=== PATIENT | female | born 1950 | race Caucasian/White ===

== ENCOUNTER → 2018-09-09 | Outpatient (CLI) | payer MEDICARE ==
[~2018-09-09] MED LIST: B12INJ PO; CENTRUM SILVER1 EAC2 PO; CITRACAL + D E1 EACH PO; GLUCOSAMINE CH1 EA10 PO; KLOR-CON 1010 MEQ PO; LEVOTHYROXIN0.025 MG PO; PROBIOTIC1 EAC1 PO; VALSARTAN-HCTZ1 EAC2 PO; VOLTAREN-XR100 MG PO; ZANTAC 150MG T150 MG PO; ZOCOR 10 MG TAB10 MG PO
== END ==
LOC: M.LAB 04:59
DX: E87.6 Hypokalemia (principal)